=== PATIENT | female | born 1970 | race Caucasian/White ===

== ENCOUNTER 2016-10-28 16:02 | Inpatient (IN) | payer BC ==
--- NOTE | ~2016-10-28 | PA ---
Unit #: [id number] #: [id number] Patient: MARCELLUS SY [id number] [facility] [address] [place] [address] [id number] MR#: [id number] NAME: MARCELLUS SY ROOM: [facility] Age: 46 Sex: F Admission Date: 10/28/2016 : 1970 Date of Assessment: 10/29/2016 Attending Physician: Hiram Garrido M.D. Admitting Physician: Hiram Garrido M.D. Primary Care Physician: Primary Care Physician No PSYCHIATRIC ASSESSMENT IDENTIFYING INFORMATION The patient is a 46-year-old white female admitted to the [facility] Unit following ingestion of alcohol and muscle relaxants. CHIEF COMPLAINT "I made a mistake." INFORMANT(S) Patient, reliability is good. HISTORY OF PRESENT ILLNESS The patient is a 46-year-old white female who was admitted in transfer from [facility], following an ingestion of muscle relaxants and alcohol. The patient reports that she had become intoxicated, and I then quarreled with her over his feeling that she had been overly familiar with a male friend. The patient reports that the frustration she had taken a handful of muscle relaxants, but vehemently denies that this was suicide attempt. She did not write a suicide note and denies any prior suicide attempts or gestures. She does report a history of psychiatric counseling a s teenager for lnn-di-pheneli behavior. The patient currently denies suicidal or homicidal ideation or recent changes in mood, sleep, or appetite. She lives with her is been employed at [employer]. She reports social alcohol use and denies use of other psychoactive substances. She vehemently denies suicidal ideation at this time and expresses appropriate contrition over the events leading to hospitalization. She states that she and her have reconciled since this episode. He in fact took her to the emergency room after her injection. PAST PSYCHIATRIC HISTORY As above. PAST MEDICAL HISTORY The patient suffers from hypothyroidism and dyslipidemia. MEDICATIONS Simvastatin, Levothyroxine. ALLERGIES None. FAMILY HISTORY Unit #: [id number] #: [id number] Patient: MARCELLUS SY Noncontributory. SOCIAL HISTORY The patient lives with her . She reports occasional use of alcohol. She denies use of other psychoactive substances. MENTAL STATUS EXAMINATION Examination at this time reveals the patient to be a well-developed well-nourished white female appearing her stated age. She is in no apparent physical distress at the time of examination. She is awake, alert, and oriented in all spheres. Her mood is euthymic, her affect full range. Speech is generally well-coherent. There are no gross deficits in memory or cognition noted. Intelligence is judged to be in the average range based on fund of knowledge. The patient is cooperative throughout the interview. She is currently denying suicidal or homicidal ideation or psychotic features. Judgment and insight appear to be intact. ASSETS AND LIABILITIES The patient's assets: Motivation for change. Liabilities: None noted. DIAGNOSTIC IMPRESSION 1. Adjustment disorder with depressed mood, resolved. 2. Possible alcohol use disorder. TREATMENT PLAN The patient is now denying suicidal ideation and will be discharged, the details of this will be included in her discharge summary to be dictated shortly. Dictated by... Hiram Garrido M.D. ANGEL/randy TD: 10/29/2016 13:37 JOB #: [id number] PSYCHIATRIC ASSESSMENT Page 1 of 1 X Hiram Garrido MD X PSYCHIATRIC ASSESSMENT
--- NOTE | ~2016-10-28 | HP ---
Unit #: [id number] #: [id number] Patient: MARCELLUS SY [id number] [place] [address] [id number] MR#: [id number] NAME: MARCELLUS SY ROOM: [facility] Age: 46 Sex: F Admission Date: 10/28/2016 : 1970 Attending Physician: Hiram Garrido M.D. Admitting Physician: Hiram Garrido M.D. Primary Care Physician: Primary Care Physician No HISTORY AND PHYSICAL HISTORY OF PRESENT ILLNESS Marcellus is a 46 year old admitted to [address] [place] [address] because of her polysubstance abuse which includes alcohol and muscle relaxers. PAST MEDICAL HISTORY 1. Hypercholesterolemia. 2. Hypothyroidism. 3. History of alcohol abuse. PAST SURGICAL HISTORY Nothing reported. ALLERGIES No known drug allergies. SOCIAL HISTORY Smokes 1/2 pack per day. Drinks 6 beers frequently if not daily and denies illicit drug use. FAMILY HISTORY Medically noncontributory. REVIEW OF SYSTEMS CONSTITUTIONAL: No fever or chills. HEENT: Denies any sore throat, ear pain or runny nose. CARDIOVASCULAR: Denies chest pain, irregular heart rhythm or palpitations. CHEST: Denies shortness of breath or cough. No hemoptysis. GASTROINTESTINAL: Denies nausea, vomiting, diarrhea or chronic constipation. ENDOCRINE: Denies history of increased thirst or urination. No recent significant weight loss or gain. GENITOURINARY: Denies dysuria, frequency, or hematuria. SKIN: Denies any rashes. HEMATOLOGIC: Denies history of increased bleeding or bruising. MUSCULOSKELETAL: Denies any hot, swollen joints. No generalized muscle pain. NEUROLOGIC: Denies problems with vision or speech. No frequent, severe headaches. No numbness, tingling or weakness in any extremities. Denies loss of bladder or bowel control. CURRENT MEDICATIONS 1. Synthroid 0.137 mg daily. 2. Milk of Magnesia p.r.n. Unit #: [id number] #: [id number] Patient: MARCELLUS SY 3. Maalox p.r.n. 4. Tylenol p.r.n. 5. Zocor 20 mg q.h.s. 6. Nicotine patch 21 mg daily. PHYSICAL EXAMINATION GENERAL: Alert, well-nourished, in no apparent distress. VITAL SIGNS: Blood pressure 110/74, heart rate 80, respirations 16, temperature 98.6. WEIGHT: 142. HEIGHT: 5 feet 1 inch. SKIN: Warm and dry without rash or lesion. HEENT: Normocephalic. TMs not viewed. Oral and nasal passages clear. Conjunctivae clear. PERRLA. EOMs intact. NECK: Supple without lymphadenopathy or thyromegaly. HEART: Regular rate and rhythm without murmur. LUNGS: Clear. ABDOMEN: Soft, nontender. : Not done. EXTREMITIES: No evidence of cyanosis, clubbing or edema. Moves all without focal deficit. NEUROLOGICAL: Grossly within normal limits. Cranial Nerves: II: Visual price are intact. III, IV AND : Extraocular movements are intact. Pupils are equal, round and reactive to light. V: Facial sensation is grossly normal. VII: Facial movements and expression are normal. VIII: Auditory acuity grossly intact. IX, X: Uvula is midline. Phonation is normal. XI: Patient shrugs shoulders and turns head normally. XII: Tongue protrudes in the midline. Sensory and Motor Function: Sensory and motor sensation is grossly normal. Motor: moves all extremities well. Coordination: Gait is normal. Deep Tendon Reflexes: Intact. IMPRESSION Psychiatric admission. RECOMMENDATIONS PSYCHIATRIC: Per psychiatrist. MEDICAL: See no contraindications to participate in facility's activities. MEDICAL PROGNOSIS Good. MEDICAL CONDITION Stable. Dictated by... Isela Moran P.A.-C. for [employer] Wade/haley TD: 10/29/2016 16:06 JOB #: [id number] Unit #: [id number] #: [id number] Patient: MARCELLUS SY HISTORY AND PHYSICAL Page 1 of 1 X Isela Moran HISTORY AND PHYSICAL
--- NOTE | ~2016-10-28 | DS ---
Unit #: [id number] #: [id number] Patient: MARCELLUS SY [id number] [facility] [address] [place] [address] [id number] MR#: [id number] NAME: MARCELLUS SY ROOM: [facility] Age: 46 Sex: F Admission Date: 10/28/2016 : 1970 Discharge Date: 10/29/2016 Attending Physician: Hiram Garrido M.D. Primary Care Physician: Primary Care Physician No DISCHARGE SUMMARY Date of discharge 10/30/2016. REASON FOR ADMISSION The patient is a 46-year-old white female, admitted following an ingestion of alcohol, muscle relaxants. HOSPITAL COURSE The patient was admitted per 72-hour hold to the [address] [place] [address] unit. She was evaluated by this physician on the morning of 10/29/2016. At that time, she was appropriately contrite over ensuing hospitalization was pleasant and cooperative, interactions with peers and staff. She vehemently denied suicidal ideation attributing the episode to an argument with her and her state of intoxication. The patient was strongly cautioned regarding abuse of alcohol, but was not felt to meet criteria for further involuntary hospitalization. As per her request, discharge was ordered. FINAL DIAGNOSES Adjustment disorder with depressed mood; dyslipidemia; hypothyroidism. DISPOSITION ON DISCHARGE The patient will continue previously prescribed levothyroxine 0.137 mg daily for thyroid replacement, simvastatin 20 mg daily for dyslipidemia. DISCHARGE INSTRUCTIONS No dietary or physical restrictions were placed upon the patient at the time of discharge. FOLLOWUP Followup will take place through the auspices of community health resources in the [place], [place] area. PROGNOSIS The patient's prognosis is considered good, but will be darkened considerably should she continue to abuse alcohol. Dictated by... Hiram Garrido M.D. ANGEL/abraham TD: 10/29/2016 14:01 Unit #: [id number] #: [id number] Patient: MARCELLUS SY JOB #: [id number] DISCHARGE SUMMARY Page 1 of 1 X Hiram Garrido MD X DISCHARGE SUMMARY
[2016-10-29 10:11] LABS: THYROID STIMULATING HORMONE 5.86 uIU/ml (0.34-5.60)
[2016-10-29 10:18] LABS: FREE THYROXIN (T4) 0.85 ng/dL (0.58-1.64)
[2016-10-29 10:29] LABS: ALBUMIN SERUM 3.9 g/dL (3.5-5.0); BILIRUBIN,TOTAL 0.8 mg/dL (0.2-2.0); BUN/CREATININE RATIO 12.5; CALCIUM SERUM 9.7 mg/dL (8.4-10.2); CREATININE SERUM 0.8 mg/dL (0.6-1.4); GLOM FILT RATE Estimated 89.7 mL/min (>60); POTASSIUM 4.6 mmol/L (3.5-5.1); PROTEIN TOTAL SERUM 7.3 g/dL (6.0-8.3)
[2016-10-29 13:03] LABS: URINE APPEARANCE CLEAR; URINE BILIRUBIN NEG (NEG); URINE BLOOD NEG (NEG); URINE COLOR YELLOW; URINE GLUCOSE NEG (NEG); URINE KETONE TRACE (NEG); URINE LEUKOCYTE ESTERASE NEG (NEG); URINE NITRATE NEG (NEG); URINE PH 5.5 (5-8); URINE PROTEIN NEG (NEG); URINE SPECIFIC GRAVITY 1.026 (1.003-1.035); URINE UROBILINOGEN 0.2 MG/DL (NEG)
[2016-10-29 13:40] LABS: AMPHETAMINE NEG (NEG); BARBITURATES NEG (NEG); BENZODIAZEPINES NEG (NEG); COCAINE NEG (NEG); MARIJUANA NEG (NEG); OPIATES NEG (NEG); TRICYCLIC ANTIDEPRESSANTS NEG (NEG); U METHADONE NEG (NEG)
== END 2016-10-29 16:00 | disposition home or self-care (01) | DRG 881 ==
LOC: P2L 16:02
PROVIDERS: Specialist
DX: F43.21 Adjustment disorder with depressed mood (principal); E03.9 Hypothyroidism, unspecified; F10.20 Alcohol dependence, uncomplicated; E78.00 Pure hypercholesterolemia, unspecified; F17.210 Nicotine dependence, cigarettes, uncomplicated
CPT/HCPCS: 80053; 80307; 81003; 84439; 84443; 84703